=== PATIENT | male | born 1940 | race African-American/Black ===

== ENCOUNTER 2019-06-23 16:15 | Emergency (ER) | payer BC ==
[~2019-06-23] VITALS: Ht 177.8 cm; Wt 68.0 kg
[2019-06-23 16:20] VITALS: BP 133/71
== END 2019-06-24 00:31 | disposition left against medical advice (07) ==
LOC: ER 16:15
DX: F10.129 Alcohol abuse with intoxication, unspecified (principal); E03.9 Hypothyroidism, unspecified; Y90.9 Presence of alcohol in blood, level not specified
CPT/HCPCS: 99283